=== PATIENT | female | born 1975 | race Caucasian/White ===

== ENCOUNTER 2020-02-01 21:27 | Emergency (ER) | payer OTHER ==
[~2020-02-01] VITALS: Ht 154.9 cm; Wt 74.8 kg
[~2020-02-01 21:27] MED LIST: COZAAR100 MG; TOPROL XL100 MG
[2020-02-01] MEDS ORDERED: HYZAAR 100-12.1 EACH (21:46)
== END 2020-02-02 02:01 | disposition home or self-care (01) ==
LOC: ER 21:27
DX: S00.81XA Abrasion of other part of head, initial encounter (principal); S80.212A Abrasion, left knee, initial encounter; S80.211A Abrasion, right knee, initial encounter; I95.89 Other hypotension; R55 Syncope and collapse; R42 Dizziness and giddiness; W18.39XA Other fall on same level, initial encounter; Y93.89 Activity, other specified; Y92.89 Other specified places as the place of occurrence of the external cause; Y99.8 Other external cause status

== ENCOUNTER 2020-02-12 12:59 | Outpatient (CLI) | payer OTHER ==
[~2020-02-12 12:59] MED LIST changes: +HYZAAR 100-12.1 EACH
== END 2020-02-12 13:17 | disposition home or self-care (01) ==
LOC: MRI 12:59
PROVIDERS: ATTEND Internal Medicine Cardiovascular Disease
DX: R51 Headache (principal)
CPT/HCPCS: 70551

== ENCOUNTER → 2025-08-14 | Emergency (ER) | payer OTHER ==
[~2025-08-14] VITALS: Ht 154.9 cm; Wt 51.3 kg
[~2025-08-14] MED LIST changes: +0.9 % SODIUM CHLORIDE 1,000 ML IV ONE
[2025-08-14 04:59] VITALS: BP 111/72; O2SAT 99
[2025-08-14 08:40] LABS: BASO % 0.3 % (0.1-1.2); EOS # 0.01 (0.04-0.54); EOS % 0.3 % (0.7-7.0); LYMPH # 0.97 (1.18-3.74); LYMPH % 24.4 % (19.3-53.1); MEAN PLATELET VOLUME 9.90 fl (9.4-12.4); MONO # 0.69 (0.24-0.82); NEUT # 2.29 (1.56-6.13); NEUT % 57.4 % (34.0-71.1); RED CELL DISTRIBUTION WIDTH 13.5 % (11.6-14.4)
[2025-08-14 08:42] LABS: MONO % 17.3 % (4.7-12.5)
[2025-08-14 08:48] LABS: URINE APPEARANCE Clear; URINE BILIRRUBIN Negative (NEGATIVE); URINE BLOOD Negative; URINE COLOR Yellow; URINE GLUCOSE Negative (NEGATIVE); URINE KETONE Negative (NEGATIVE); URINE LEUKOCYTE Negative; URINE NITRATE Negative; URINE PROTEIN Negative (NEGATIVE); URINE UROBILINOGEN 1.0 E.U./dl
[2025-08-14 08:53] LABS: URINE BACTERIA 392.3 uL (0.0-1933); URINE EPITHELIAL CELLS 4.7 uL (0.0-38.8); URINE RBC 19.9 uL (0.0-20.8); URINE WBC 5.8 uL (0.0-23.2)
[2025-08-14 09:10] LABS: URINE CAST 0.00 uL (0.0-1.40)
[2025-08-14 09:17] LABS: INR 1.06
[2025-08-14 09:18] LABS: ALT/SGPT 25.0 U/L (12-78); AST/SGOT 17.0 U/L (15-37); BILIRUBIN TOTAL 0.27 mg/dL (0.3-1.2); BUN CREA RATIO 11.0 (7.0-25.0); CREATININE SERUM 0.65 mg/dL (0.55-1.02); GFR 96.88; GLOBULINA 4.1 G/DL (2.4-3.5); GLUCOSE FASTING 88.0 mg/dL (65-100); OSMOLALITY SERUM 279.0 MOSM/KG (275-295)
== END | disposition home or self-care (01) ==
LOC: ER 04:46
PROVIDERS: General Practice
DX: R55 Syncope and collapse (principal); I10 Essential (primary) hypertension